=== PATIENT | male | born 1955 | race Caucasian/White ===

== ENCOUNTER 2017-11-12 11:44 | Emergency (ER) | payer OTHER ==
[2017-11-12 11:56] VITALS: BP 205/103; PULSE 89; RESP 20; TEMP 97.9; O2SAT 95
[2017-11-12] MEDS ORDERED: LISI40TA PO (11:59)
[2017-11-12] MEDS ORDERED: CHOL10008 (11:59)
[2017-11-12] MEDS ORDERED: OMEP20TA93 PO (11:59)
[2017-11-12] MEDS ORDERED: ASPI-516 CHEW (11:59)
[2017-11-12] MEDS ORDERED: ATOR20TA15 PO (11:59)
--- NOTE | 2017-11-12 12:17 | PD ---
HPI Chief Complaint: Musculoskeletal Complaint Time Seen by Provider: 12:02 Travel History International Travel<30 days: No Contact w/Intl Traveler<30days: No Traveled to known affect area: No History of Present Illness HPI 61-year-old male presents emergency department for evaluation of bilateral upper shoulder pain that started last night. Patient says his pain is constant and is mild in severity, non radiating. Pain is not positional, not reproducible. Says he developed some discomfort in his throat and upper chest when taking a deep breath this morning. He has no history of this discomfort. He has a history of hyperlipidemia, hypertension and an aneurysm "above his heart". Says that he is visiting from [place] and does have a primary care physician in [place]. Patient says that he is followed for this aneurysm every 6 months. Says he is concerned about developing "bilateral pneumonia" which is the reason for his visit today. Says he has a history of this and says this sensation is similar to that illness. Denies recent extended travel, history of blood clots, recent surgery, recent fractures. Denies nausea, vomiting, diarrhea. Denies chest pain, shortness of breath. PFSH Past Medical History High Cholesterol: Yes GERD: Yes Hypertension: Yes Medical other: Yes (ANEURYSM) Social History Alcohol Use: No Tobacco Use: No Substance Use: No Allergies-Medications (Allergen,Severity, Reaction): Coded Allergies: No Known Allergies (Unverified , 11/12/17) Reported Meds & Prescriptions Reported Meds & Active Scripts Active Reported Atorvastatin (Atorvastatin Calcium) 20 Mg Tab 20 Mg PO HS Omeprazole 20 Mg Tab 20 Mg PO DAILY Vitamin D3 (Cholecalciferol) 1,000 Unit Cap 1,000 Units DAILY Aspirin 81 Mg Chew 81 Mg CHEW DAILY Lisinopril 40 Mg Tab 40 Mg PO DAILY Review of Systems Except as stated in HPI: all other systems reviewed are Neg Physical Exam Narrative GENERAL: Well-nourished, well-developed patient. SKIN: Focused skin assessment warm/dry. HEAD: Normocephalic. EYES: No scleral icterus. No injection or drainage. NECK: Supple, trachea midline. No JVD or lymphadenopathy. Pharynx noninjected, no tonsillar hypertrophy or exudate CARDIOVASCULAR: Regular rate and rhythm without murmurs, gallops, or rubs. RESPIRATORY: Breath sounds equal bilaterally. No accessory muscle use. GASTROINTESTINAL: Abdomen soft, non-tender, nondistended. No CVA tenderness MUSCULOSKELETAL: No cyanosis, or edema. No tenderness palpation of the chest wall mild TTP to bilateral upper shoulders/ trapezius region, unable to reproduce pain. FROM of shoulders. BACK: Nontender without obvious deformity. No CVA tenderness. Data Data Last Documented VS Vital Signs Date Time Temp Pulse Resp B/P (MAP) Pulse Ox O2 Delivery O2 Flow Rate FiO2 11/12/17 12:46 96 Room Air 11/12/17 11:56 97.9 89 20 205/103 (137) Orders Orders Chest, Pa & Lat (11/12/17 ) Electrocardiogram (11/12/17 12:21) Ckmb (Isoenzyme) Profile (11/12/17 12:21) Complete Blood Count With Diff (11/12/17 12:21) Comprehensive Metabolic Panel (11/12/17 12:21) D-Dimer (11/12/17 12:21) Prothrombin Time / Inr (Pt) (11/12/17 12:21) Act Partial Throm Time (Ptt) (11/12/17 12:21) Troponin I (11/12/17 12:21) Ecg Monitoring (11/12/17 12:21) Iv Access Insert/Monitor (11/12/17 12:21) Oximetry (11/12/17 12:21) Sodium Chloride 0.9% Flush (Ns Flush) (11/12/17 12:30) CKMB (11/12/17 12:40) CKMB% (11/12/17 12:40) Ed Discharge Order (11/12/17 14:03) Labs Laboratory Tests Test 11/12/17 12:40 11/12/17 13:05 White Blood Count 10.9 TH/MM3 Red Blood Count 4.87 MIL/MM3 Hemoglobin 14.8 GM/DL Hematocrit 42.8 % Mean Corpuscular Volume 87.9 FL Mean Corpuscular Hemoglobin 30.3 PG Mean Corpuscular Hemoglobin Concent 34.5 % Red Cell Distribution Width 13.2 % Platelet Count 281 TH/MM3 Mean Platelet Volume 8.6 FL Neutrophils (%) (Auto) 74.7 % Lymphocytes (%) (Auto) 13.6 % Monocytes (%) (Auto) 8.8 % Eosinophils (%) (Auto) 1.2 % Basophils (%) (Auto) 1.7 % Neutrophils # (Auto) 8.1 TH/MM3 Lymphocytes # (Auto) 1.5 TH/MM3 Monocytes # (Auto) 1.0 TH/MM3 Eosinophils # (Auto) 0.1 TH/MM3 Basophils # (Auto) 0.2 TH/MM3 CBC Comment DIFF FINAL Differential Comment Blood Urea Nitrogen 18 MG/DL Creatinine 1.00 MG/DL Random Glucose 98 MG/DL Total Protein 8.2 GM/DL Albumin 3.8 GM/DL Calcium Level 8.6 MG/DL Alkaline Phosphatase 73 U/L Aspartate Amino Transf (AST/SGOT) 26 U/L Alanine Aminotransferase (ALT/SGPT) 39 U/L Total Bilirubin 0.4 MG/DL Sodium Level 139 MEQ/L Potassium Level 4.0 MEQ/L Chloride Level 108 MEQ/L Carbon Dioxide Level 24.5 MEQ/L Anion Gap 7 MEQ/L Estimat Glomerular Filtration Rate 76 ML/MIN Total Creatine Kinase 137 U/L Creatine Kinase MB 1.3 NG/ML Troponin I LESS THAN 0.02 NG/ML Prothrombin Time 10.6 SEC Prothromb Time International Ratio 1.0 RATIO Activated Partial Thromboplast Time 29.8 SEC D-Dimer Quantitative (PE/DVT) 0.32 MG/L [facility] Medical Decision Making Medical Screen Exam Complete: Yes Emergency Medical Condition: Yes Differential Diagnosis Pulmonary embolism, muscle strain, muscle spasms, angina, atypical chest pain Narrative Course 61-year-old male presents emergency department for evaluation of bilateral upper shoulder pain that started last night. Patient says his pain is constant and is mild in severity, non radiating. Pain is not positional, not reproducible. Says he developed some discomfort in his throat and upper chest when taking a deep breath this morning. He has no history of this discomfort. He has a history of hyperlipidemia, hypertension and an aneurysm "above his heart". Says that he is visiting from [place] and does have a primary care physician in [place]. Patient says that he is followed for this aneurysm every 6 months. Says he is concerned about developing "bilateral pneumonia" which is the reason for his visit today. Says he has a history of this and says this sensation is similar to that illness. Denies recent extended travel, history of blood clots, recent surgery, recent fractures. Denies nausea, vomiting, diarrhea. Denies chest pain, shortness of breath. He admits that he did help out with the toilet yesterday and this may be the result of that activity however, he is not completely convinced and neither his . Pt says he has been more stressed than normal because of his and believes that his symptoms may be related to this. Denies history of cardiac complaints. Patient says he actually did not want to come in today however, his insisted. Because of his somewhat vague onset of symptoms and nonreproducible pain, I discussed this case with my attending, Dr. Wilkins who agreed with the plan. Labs and imaging studies ordered. EKG shows sinus rhythm without STEMI changes. No comparisons available. Last Impressions Chest X-Ray 11/12/17 0000 Signed Impressions: Service Date/Time: Sunday, November 12, 2017 12:55 - CONCLUSION: No acute disease. Rudolph Segura MD CBC & BMP Diagram 11/12/17 12:40 Total Protein 8.2, Albumin 3.8, Calcium Level 8.6, Alkaline Phosphatase 73, Aspartate Amino Transf (AST/SGOT) 26, Alanine Aminotransferase (ALT/SGPT) 39, Total Bilirubin 0.4 D-dimer 0.32, cardiac enzymes negative. Based off of history and physical and low probability of pulmonary embolism, I do not feel that any more additional imaging, labs, or evaluation is necessary. I believe he has a muscle strain secondary to movement of the toilet yesterday and patient may also have some stress, resulting in this vague shoulder pain/ discomfort. He may also have some post nasal drip causing this discomfort when breathing, although I did not appreciate this on exam today. Advised patient to follow-up with his primary care physician next week. Says he would be able to comply as he returns home next week. Patient is advised to return for worsening or persistent symptoms. Diagnosis Primary Impression: Muscle strain Referrals: Primary Care Physician Additional Instructions: Perform light stretches of the back, arms, and legs, and alternate heat and ice packs. Return to the ED for further treatment and evaluation if your symptoms persist or worsen. Follow up with your primary care physician in 2-3 days. If you develop shortness of breath, chest pain, worsening pain, return to the emergency department. Disposition: 01 DISCHARGE HOME Condition: Stable Diana Justcie Nov 12, 2017 12:17
[2017-11-12] MEDS ORDERED: SODIUM CHLORIDE 0.9% FLUSH 10 ML FLUSH IVF PRN (12:30)
[2017-11-12 12:46] VITALS: O2SAT 96
[2017-11-12 12:51] LABS: AUTOMATED NEUTROPHIL # 8.1 TH/MM3 (1.8-7.7); BASOPHIL # 0.2 TH/MM3 (0-0.2); BASOPHIL % 1.7 % (0.0-2.0); EOSINOPHIL # 0.1 TH/MM3 (0-0.4); EOSINOPHIL % 1.2 % (0.0-4.0); HEMATOCRIT 42.8 % (39.0-51.0); HEMOGLOBIN 14.8 GM/DL (13.0-17.0); LYMPH % 13.6 % (9.0-44.0); LYMPHOCYTE # 1.5 TH/MM3 (1.0-4.8); MEAN CELL VOLUME 87.9 FL (80.0-100.0); MEAN CORPUSCULAR HEMOGLOBIN 30.3 PG (27.0-34.0); MEAN CORPUSCULAR HGB CONC 34.5 % (32.0-36.0); MEAN PLATELET VOLUME 8.6 FL (7.0-11.0); MONO % 8.8 % (0.0-8.0); NEUT % 74.7 % (16.0-70.0); PLATELET COUNT 281 TH/MM3 (150-450); RED BLOOD COUNT 4.87 MIL/MM3 (4.50-5.90); RED CELL DISTRIBUTION WIDTH 13.2 % (11.6-17.2); WHITE BLOOD COUNT 10.9 TH/MM3 (4.0-11.0)
--- NOTE | 2017-11-12 12:58 | PD ---
Data Data Last Documented VS Vital Signs Date Time Temp Pulse Resp B/P (MAP) Pulse Ox O2 Delivery O2 Flow Rate FiO2 11/12/17 12:46 96 Room Air 11/12/17 11:56 97.9 89 20 205/103 (137) Orders Orders Chest, Pa & Lat (11/12/17 ) Electrocardiogram (11/12/17 12:21) Ckmb (Isoenzyme) Profile (11/12/17 12:21) Complete Blood Count With Diff (11/12/17 12:21) Comprehensive Metabolic Panel (11/12/17 12:21) D-Dimer (11/12/17 12:21) Prothrombin Time / Inr (Pt) (11/12/17 12:21) Act Partial Throm Time (Ptt) (11/12/17 12:21) Troponin I (11/12/17 12:21) Ecg Monitoring (11/12/17 12:21) Iv Access Insert/Monitor (11/12/17 12:21) Oximetry (11/12/17 12:21) Sodium Chloride 0.9% Flush (Ns Flush) (11/12/17 12:30) CKMB (11/12/17 12:40) CKMB% (11/12/17 12:40) Labs Laboratory Tests Test 11/12/17 12:40 11/12/17 13:05 White Blood Count 10.9 TH/MM3 Red Blood Count 4.87 MIL/MM3 Hemoglobin 14.8 GM/DL Hematocrit 42.8 % Mean Corpuscular Volume 87.9 FL Mean Corpuscular Hemoglobin 30.3 PG Mean Corpuscular Hemoglobin Concent 34.5 % Red Cell Distribution Width 13.2 % Platelet Count 281 TH/MM3 Mean Platelet Volume 8.6 FL Neutrophils (%) (Auto) 74.7 % Lymphocytes (%) (Auto) 13.6 % Monocytes (%) (Auto) 8.8 % Eosinophils (%) (Auto) 1.2 % Basophils (%) (Auto) 1.7 % Neutrophils # (Auto) 8.1 TH/MM3 Lymphocytes # (Auto) 1.5 TH/MM3 Monocytes # (Auto) 1.0 TH/MM3 Eosinophils # (Auto) 0.1 TH/MM3 Basophils # (Auto) 0.2 TH/MM3 CBC Comment DIFF FINAL Differential Comment Blood Urea Nitrogen 18 MG/DL Creatinine 1.00 MG/DL Random Glucose 98 MG/DL Total Protein 8.2 GM/DL Albumin 3.8 GM/DL Calcium Level 8.6 MG/DL Alkaline Phosphatase 73 U/L Aspartate Amino Transf (AST/SGOT) 26 U/L Alanine Aminotransferase (ALT/SGPT) 39 U/L Total Bilirubin 0.4 MG/DL Sodium Level 139 MEQ/L Potassium Level 4.0 MEQ/L Chloride Level 108 MEQ/L Carbon Dioxide Level 24.5 MEQ/L Anion Gap 7 MEQ/L Estimat Glomerular Filtration Rate 76 ML/MIN Total Creatine Kinase 137 U/L Creatine Kinase MB 1.3 NG/ML Troponin I LESS THAN 0.02 NG/ML Prothrombin Time 10.6 SEC Prothromb Time International Ratio 1.0 RATIO Activated Partial Thromboplast Time 29.8 SEC D-Dimer Quantitative (PE/DVT) 0.32 MG/L FEU [facility] Supervised Visit with DANNY: Yes Narrative Course I, Dr. Wilkins, have reviewed the advance practice practitioner's documentation and am in agreement, met with the patient face to face, made the diagnosis, and the medical decision making was done by me. *My assessment and Findings: I evaluated this patient. He has some vague pleuritic chest heaviness in the upper central sternum. Extensive workup has been ordered. This is clearly noncardiac in terms of ACS. However, question is whether to image his aorta with the report of aneurysm. It seems unlikely given his mild pleuritic symptoms. D-dimer is pending but we will need to decide whether or not to do CTA of the chest if the d-dimer is elevated. Clinical suspicion is on the low side. He looks quite comfortable. Workup here is negative. PE is ruled out as he is a low risk patient with low d -dimer. I do not think he warrants CT of his aorta to evaluate for aneurysm worsening. He looks quite comfortable and symptoms do not match an aneurysm leak or enlargement Condition: Stable Sven Wilkins MD Nov 12, 2017 12:58
[2017-11-12 13:02] LABS: CHLORIDE 108 MEQ/L (98-107); SODIUM (NA) 139 MEQ/L (136-145)
[2017-11-12 13:05] LABS: CALCIUM 8.6 MG/DL (8.5-10.1)
[2017-11-12 13:06] LABS: ALBUMIN 3.8 GM/DL (3.4-5.0); BICARBONATE 24.5 MEQ/L (21.0-32.0); BLOOD UREA NITROGEN 18 MG/DL (7-18); GLUCOSE,RANDOM 98 MG/DL (74-106)
[2017-11-12 13:09] LABS: ALT (GPT) 39 U/L (12-78); AST (GOT) 26 U/L (15-37); GLOMERULAR FILTRATION RATE 76 ML/MIN (>89)
[2017-11-12 13:10] LABS: TOTAL BILIRUBIN ADULT 0.4 MG/DL (0.2-1.0); TOTAL PROTEIN 8.2 GM/DL (6.4-8.2)
[2017-11-12 13:12] LABS: ALKALINE PHOSPHATASE 73 U/L (45-117)
[2017-11-12 13:14] LABS: TROPONIN I LESS THAN 0.02 NG/ML (0.02-0.05)
--- NOTE | 2017-11-12 13:39 | RADRPT ---
EXAM DATE/TIME: 11/12/2017 12:55 [facility] COMPARISON: No previous studies available for comparison. INDICATIONS : Chest pain. MEDICAL HISTORY : Aneurysm, intracranial. SURGICAL HISTORY : None. ENCOUNTER: Initial ACUITY: 1 day PAIN SCORE: 5/10 LOCATION: Bilateral chest Upper FINDINGS: PA and lateral views of the chest demonstrate the lungs to be symmetrically aerated without evidence of mass, infiltrate or effusion. The cardiomediastinal contours are unremarkable. Osseous structure s are intact. CONCLUSION: No acute disease. Rudolph Segura MD on November 12, 2017 at 13:37 Board Certified Radiologist. This report was verified electronically.
[2017-11-12 13:47] LABS: PROTHROMBIN TIME - PATIENT 10.6 SEC (9.8-11.6)
[2017-11-12 13:50] LABS: D-DIMER 0.32 MG/L FEU (0.00-0.50)
--- NOTE | 2017-11-13 23:13 | EKG ---
Date Performed: 11/12/2017 Time Performed: 12:29:51 PTAGE: 61 years EKG: Sinus rhythm INFERIOR MYOCARDIAL INFARCTION ABNORMAL ECG NO PREVIOUS TRACING DOCTOR: Star Blackmon Interpretating Date/Time 11/13/2017 23:12:30
== END 2017-11-12 14:36 | disposition home or self-care (01) ==
LOC: PHEFT 11:44
DX: S46.912A Strain of unspecified muscle, fascia and tendon at shoulder and upper arm level, left arm, initial encounter (principal); S46.911A Strain of unspecified muscle, fascia and tendon at shoulder and upper arm level, right arm, initial encounter; X50.0XXA Overexertion from strenuous movement or load, initial encounter; Y93.89 Activity, other specified; R94.31 Abnormal electrocardiogram [ECG] [EKG]; R07.81 Pleurodynia; I10 Essential (primary) hypertension; E78.00 Pure hypercholesterolemia, unspecified; I71.4 Abdominal aortic aneurysm, without rupture; K21.9 Gastro-esophageal reflux disease without esophagitis; Z79.82 Long term (current) use of aspirin
CPT/HCPCS: 71046; 80053; 82550; 82552; 84484; 85025; 85379; 85610; 85730; 93005; 99285